=== PATIENT | female | born 1990 | race Caucasian/White ===

== ENCOUNTER 2016-11-24 05:41 | Day surgery (SDC) | payer OTHER ==
[~2016-11-24] VITALS: Ht 157.5 cm; Wt 66.1 kg
[2016-11-24] VITALS (8 sets, daily range): BP systolic 96–113; BP diastolic 54–69; PULSE 64–83; RESP 12–18; O2SAT 95–99
[~2016-11-24 05:41] MED LIST: Lactated Ringer's 1,000 ML IV SCH
[2016-11-24] MEDS ORDERED: fentaNYL-PF 50 mCg/mL 2 mL Inj ONE (05:42)
[2016-11-24] MEDS ORDERED: Propofol 10,000 mCg/mL 20 mL Inj ONE (05:42)
[2016-11-24] MEDS ORDERED: Ondansetron 2 mg/mL 2 mL Inj ONE (05:42)
[2016-11-24] MEDS ORDERED: MetoCLOpramide 5 mg/mL 2 mL Inj ONE (05:42)
[2016-11-24] MEDS ORDERED: Oxytocin 10 Unit/mL Inj ONE (05:42)
[2016-11-24] MEDS ORDERED: Dexamethasone 4 mg/mL Inj ONE (05:42)
[2016-11-24] MEDS ORDERED: Phenylephrine/NS-PF 100 mCg/mL 5 mL Syringe IVPUSH ONE (05:42)
[2016-11-24] MEDS: Lactated Ringer's 1,000 ML IV SCH ×2 (05:50→07:20)
--- NOTE | 2016-11-24 06:15 | HP PRE OP ---
[address] [address] PREOPERATIVE HISTORY AND PHYSICAL PATIENT: AUBREY TREJO : 1990 MR#: [id number] ADMIT: 11/24/2016 JOB ID: [id number] IDENTIFICATION: The patient is a 26-year-old, AB2, single woman. CHIEF COMPLAINT: First trimester missed . HISTORY OF PRESENT ILLNESS: This patient presented to my office at [facility] for obstetric visit on November 20, 2016, at 12-5/7 weeks along in her . heartbeat could not be detected by Doppler and ultrasound was accomplished, and pole was identified with size consistent with only 11-1/7 weeks, and heartbeat was absent. Confirmatory ultrasound was accomplished formally and, thus, demise confirmed. The patient was given recommendation for suction D and C procedure in light of late 1st trimester status, likely for too much risk of heavy bleeding if to try simply to spontaneously miscarry. The patient understood and agreed to suction D and C, realizing that there are risks to this surgery as well which include bleeding, infection, cervical or uterine wall perforation, anesthetic risks, etc. She had all of her questions answered, no guarantees were stated or implied, and she has signed informed consent for surgery. Note that the patient has understood various causes of first-trimester loss including genetics, and although she has had two prior miscarriages with another partner, she has also had a full-term of a healthy child. In summary, then, the patient will be admitted to [facility] for suction D and C procedure, scheduled for November 24, 2016. PHYSICAL EXAMINATION: On admission, height 62-1/2 inches, weight 145 pounds. Blood pressure 104/64. Neck: No thyromegaly. Lungs: Clear to auscultation and percussion. Heart: Regular in rate and rhythm. Abdomen: Nontender. No mass. Note scar. Pelvic examination: Vulva, vagina and cervix, no obvious epithelial abnormality. No bleeding. Uterus is enlarged, consistent with late 1st trimester . DIAGNOSTIC DATA: Preoperative hemoglobin 13.0, with platelets 244, and Rh status positive, all on November 23, 2016. IMPRESSION: 1. Late first trimester missed , with admission planned for suction dilatation and curettage procedure. 2. Reproductive history: a. First --early miscarriage, no D and C. b. Second --early miscarriage, no D and C. c. Third --41-1/2 week delivery of 7 pound 5 ounce baby, failure to progress in lengthy labor. d. Fourth --current--late 1st trimester missed . 3. Surgical history: a. Reproductive history--see prior number. b. [place] teeth extraction. 4. Prior control pill use, for planned restart following missed . 5. History of abnormal Pap, demonstrating low-grade squamous intraepithelial lesion and human papillomavirus (HPV), colposcopically directed biopsies negative, followup Pap and HPV studies negative from October 23, 2016. 6. Psoriasis. 7. Anxiety and depression history. 8. Prior smoking, stopped in June 2016. Father of baby, smokes. 9. Family history of diabetes (father), atrial fibrillation, with reported blood clots in heart (father), and endometriosis (mother). PLAN: This patient is admitted to [facility] on November 24, 2016, on which day she will undergo suction D and C procedure in the setting of first trimester missed .
[2016-11-24] MEDS ORDERED: hydrALAZINE 20 mg/mL Inj IVPUSH PRN (07:40)
[2016-11-24] MEDS ORDERED: fentaNYL-PF 50 mCg/mL 2 mL Inj IVPUSH PRN (07:40)
[2016-11-24] MEDS ORDERED: Lactated Ringer's 1,000 ML IV SCH (07:40)
[2016-11-24] MEDS ORDERED: Labetalol 5 mg/mL 4 mL Inj IV PRN (07:40)
[2016-11-24] MEDS ORDERED: EPHEDrine Sulfate 50 mg/mL Inj IVPUSH PRN (07:40)
[2016-11-24] MEDS ORDERED: Atropine 0.4 mg/mL Inj IVPUSH PRN (07:40)
[2016-11-24] MEDS ORDERED: Lactated Ringer's 500 ML IV PRN (07:40)
[2016-11-24] MEDS ORDERED: Phenylephrine 10,000 mCg/mL Inj IVPUSH PRN (07:40)
[2016-11-24] MEDS ORDERED: Ondansetron 2 mg/mL 2 mL Inj IVPUSH PRN ×2 (07:40→08:10)
[2016-11-24] MEDS ORDERED: MetoCLOpramide 5 mg/mL 2 mL Inj IVPUSH PRN ×2 (07:40→08:10)
[2016-11-24] MEDS ORDERED: Lactated Ringer's 1,000 ML IV ONE (07:52)
[2016-11-24] MEDS ORDERED: HYDROmorphone 1 mg/mL Inj IVPUSH PRN (08:10)
--- NOTE | 2016-11-24 08:32 | PCM.HPANE ---
Patient Data Surgeon Admitting Provider: Attending Provider:Sb Haro MD Primary Care Physician:Suresh Other Provider:Lwe Valencia Anesthesia Reason for Visit Missed Ab Ht/WT & BMI Height (Feet): 5 Height (Inches): 2.00 Weight (Kilograms): 66.1 Body Mass Index 26.00 Allergies Coded Allergies: No Known Allergies (Unverified , 11/23/16) Past Anesthesia History Anesthesia History: Denies:: Abnormal Airway, Anesthesia Reactions, Difficult Intubation, Fam Anesthesia Reaction Diabetes History Hx Diabetes?: No MRSA MRSA: No Medications Hypertension Medication: No Home Meds Incl Beta Ashley: No No Active Prescriptions or Reported Meds History History of ENT Problems?: No HEENT History: Denies:: Abnormal Airway Cataracts Difficult Intubation Dysphagia Glaucoma Hearing Problem Sinus Problem TMJ Hx of Heart Problems?: No Cardiovascular History: Denies:: AICD Abdominal Aortic Aneurism Atrial Fibrillation Cardiac Surgery Edema Heart Murmur Hypertension Irregular Heartbeat Pacemaker Peripheral Vascular Hx of Respiratory Problem?: No Respiratory History: Denies:: Asthma COPD Emphysema Oxygen Administration Pneumonia Tuberculosis Use of C-PAP Machine Use of Inhalers / NEBS Hx Neurologic Problems?: No Neurological History: Denies:: CVA Multiple Sclerosis Parkinson's Disease Seizures TIA Hx of GI Problems?: No Gastrointestinal History: Denies:: Cirrhosis Gall Bladder Disease Gastroesphageal Reflux Gastrointestinal Bleeding Heartburn Hepatitis Hiatal Hernia Hx of Problems?: No Genitourinary History: Denies:: Kidney Stones Urinary Tract Infection Female Hx: Positive for:: Currently Denies:: Problems with Breasts? Skin History: Denies:: History Skin Disorders? Pressure Ulcers Hx Musculoskeletal Problems?: No Musculoskeletal History: Positive for:: Musculoskeletal Trauma (left knee pulled kneecap outward, pops) Denies:: Fibromyalgia Joint Replacement Myasthenia Gravis Osteoarthritis Systemic Lupus Hx of Psycho/Social Problems?: No Psycho Social History: Denies:: Anxiety Hx Depression Hx Any Other Health Problems?: No Other History: Denies:: Cancer Thyroid Disease History Blood Transfusions: Positive for:: Accept Blood Products? Denies:: Blood Transfusions Hx Diabetes: No Hx Alcohol Use: YesAlcoholic Drinks Per Day: couple times monthlyHx Substance Use: NoHave You Smoked inLast 12 mo: No Stop/Bang S-Snoring: Do You Snore Loudly: No T-Tired: feel tired, fatigued: No O-Obsered: Observed not breath: No P-Blood Pressure: treated: No B- Body Mass Index > 35 kg/m2: No A- Age over 50: No N- Neck Large Circumference: No G- Gender Male: No CARLOS Total Score: 0 Risk Assessment Category Category 1A: Patient has history of documented sleep apnea, and HAS NOT received any narcotic, sedative or anesthesia administration during this stay. Category 1B: Patient has history of documented sleep apnea, and HAS received any narcotic , sedative or anesthesia administration during this stay Category 2: Patient has SUSPECTED Obstructive Sleep Apnea, and HAS received any narcotic , sedative or anesthesia administration during this stay. Category 3: Patient has SUSPECTED Obstructive Sleep Apnea and HAS NOT received narcotic, sedative or anesthesia administration during this stay. Category 4: Outpatient in Procedural Areas with known sleep apnea or who screen positive for High Risk via the STOP/BANG questionnaire. Exam Exam Vital Signs Vital Signs Date Time Temp Pulse Resp B/P Pulse Ox O2 Delivery O2 Flow Rate FiO2 11/24/16 06:31 36.0 64 18 104/54 99 Room Air General Appearance: Alert, Oriented X3, Cooperative, No Acute Distress HEENT/AIRWAY: MP 2, Neck Movement (FROM), Mouth Opening (3 FBMO) Lungs: Clear to Auscultation, Normal Air Movement Heart: Exam Unremarkable, Regular Rate/Rhythm, No Murmurs/Rubs/Gallops Meds/Labs/Diagnostics Admission Meds Current Medications Lactated Ringer's (Lr) 1,000 ml @ 10 mls/hr Q24H IV Last administered on t 05:50; Start 11/24/16 at 05:00; Stop 11/28/16 at 08:59 Plan Impression Patient chart reviewed, patient interviewed and anesthestic plan with risks, benefits, and alternatives discussed, and informed consent obtained. NPO Status: 1130PM ASA Physical Status: ASA2 Mod Systemic Disease Anesthetic Plan: GA Bene/Risks/Altern/Consents: Yes HP Complete Prior to Induction: Yes Ayush Naranjo MD Nov 24, 2016 07:04
--- NOTE | 2016-11-24 08:33 | PCM.ANEP2 ---
Post Anesthesia Evaluation ASA/CMS Post Anesthesia VS in Patient's Normal Range?: Yes Resp Stable; Airway Patent?: Yes CV Function & Hydration Stable: Yes Mental Status Recovered?: Yes Pain control Satisfactory?: Yes N/V Control Satisfactory?: Yes Ayush Naranjo MD Nov 24, 2016 08:33
--- NOTE | 2016-11-24 08:33 | PCM.ANEP1 ---
Post Anesthesia Phase 1 PACU Phase 1 Assessment Vital Signs Vital Signs Date Time Temp Pulse Resp B/P Pulse Ox O2 Delivery O2 Flow Rate FiO2 11/24/16 08:25 37.0 72 14 109/67 96 Room Air 11/24/16 08:20 83 17 96/69 95 Room Air 11/24/16 08:17 36.4 82 16 107/59 95 Room Air 11/24/16 06:31 36.0 64 18 104/54 99 Room Air Anesthetic Administered: GA Level of Alertness: Awake, talking BROWN's with Equal Strength: Yes Pain: No Nausea or Vomiting: No Oxygen Delivery: Simple Mask Lungs: Clear to Auscultation, Normal Air Movement Dermatome Level: Full Sensation Ayush Naranjo MD Nov 24, 2016 08:33
--- NOTE | 2016-11-25 07:21 | OP ---
[address] [address] OPERATIVE REPORT PATIENT: AUBREY TREJO : 1990 MR#: [id number] ADMIT: 11/24/2016 JOB ID: [id number] DATE OF SURGERY: 11/24/2016 SURGEON: Sb Haro MD. HOSPICE CONSULTANT: None. ANESTHESIA: General. PREOPERATIVE DIAGNOSIS(ES): First trimester missed . POSTOPERATIVE DIAGNOSIS(ES): First trimester missed . PROCEDURE PERFORMED: Suction dilation and curettage. FINDINGS: At surgery, uterus sounded to 14 cm. Cervix was soft and dilated readily up to 12 mm. Large amount of products conception was recovered. At procedure's close, bleeding was minimal. It certainly is anticipated that patient will do very well during the postoperative time frame. PROCEDURE IN DETAIL: The patient was placed in the supine position on the operating table and general anesthesia was induced. She was then very carefully repositioned into the low dorsal lithotomy position and prepped and draped in the usual sterile manner. A time-out was taken with appropriate patient identification and review of procedure and other surgical elements. The weighted speculum was then placed posteriorly and a tenaculum on the anterior cervical lip and another on the posterior cervical lip. Uterus was then sounded and the cervix was easily dilated up to 12 mm, essentially dilated to that point already. A size 12 straight suction tip was then selected and careful suction curettage was accomplished with hip rotation as withdrawn, repetitively. Large amount of tissue was recovered and then no more tissue presented and bleeding slowed. Overall blood loss was about 200 cc. Gentle sharp curettage was then accomplished simply to demonstrate clean endometrial lining, and this was confirmed. Bleeding remained minimal. Final suction curettage was accomplished with removal of blood and clots in small amount. Suction dilation and curettage procedure was thus complete. Each tenaculum was removed from the cervix, all instruments were removed from the uterus and vagina, and instrument and sponge counts were all found to be correct. Bleeding was minimal at this point. The patient was stable throughout. She returned to the supine position and awakened and then taken to the recovery room. ESTIMATED BLOOD LOSS: 200 cc. COMPLICATIONS: None. PROGNOSIS: Good for surgical recovery. [facility]
--- NOTE | 2016-11-26 13:04 | PATH ---
SURGICAL PATHOLOGY Attending Physician:Sb Haro M.D CASE STATUS: Signed Out PATIENT NAME: AUBREY TREJO PID: [id number] : 1990 DATE COLLECTED:11/24/2016 15:11 SPECIMEN: Products of conception CLINICAL HISTORY: 1ST TRIMESTER MISSED , 11 WEEKS 1). PRODUCTS OF CONCEPTION FINAL DIAGNOSIS: 1.PRODUCTS OF CONCEPTION: IMMATURE PLACENTAL TISSUE AND FRAGMENTS OF TISSUE. ICD10 CODE O02.1 GROSS DESCRIPTION: The specimen is received in formalin, labeled with the patient's name, sublabeled as products of conception and consists of multiple fragments of mcgrath spongy partially membranous tissue (7.5 x 6.8 x 1.5 cm in aggregate). A fragmented developing fetus (6.0 x 1.5 x 0.5 cm in aggregate) is identified. No pathological abnormalities are identified. Section code: (A, B) tissue fragments, direct sales representative; (C) tissue, direct sales representative. 11/25/16 JM MICRO DESCRIPTION: See diagnosis. ICD-9 CODES: CPT CODES: 1: 73310 Electronically Signed Out Loco Serrano MD [facility] Pathology [facility] [address], [place] [address] Technical component performed at [facility], [facility] [address], [address]
== END 2016-11-24 23:59 | disposition home or self-care (01) ==
LOC: SAS 05:41
PROVIDERS: ATTEND Obstetrics & Gynecology
DX: O02.1 Missed abortion (principal)